=== PATIENT | female | born 1960 | race Caucasian/White ===

== ENCOUNTER → 2016-11-01 | Outpatient (CLI) | payer OTHER | END | disposition home or self-care (01) | LOC: PETCFH 08:13 | PROVIDERS: ATTEND Obstetrics & Gynecology Maternal & Fetal Medicine | DX: M43.07 Spondylolysis, lumbosacral region (principal); M13.89 Other specified arthritis, multiple sites; M89.9 Disorder of bone, unspecified | CPT/HCPCS: 78306; A9503 ==

== ENCOUNTER → 2016-11-06 | Outpatient (CLI) | payer OTHER | END | disposition home or self-care (01) | LOC: PETCFH 07:37 | PROVIDERS: ATTEND Obstetrics & Gynecology Maternal & Fetal Medicine | DX: M89.9 Disorder of bone, unspecified (principal); I77.810 Thoracic aortic ectasia; J84.10 Pulmonary fibrosis, unspecified | CPT/HCPCS: 78815; A9552 ==

== ENCOUNTER → 2017-05-29 | Outpatient (CLI) | payer OTHER | END | disposition home or self-care (01) | LOC: CFH 09:05 → EDSTATUS 09:30 | PROVIDERS: ATTEND Orthopaedic Surgery | DX: M43.17 Spondylolisthesis, lumbosacral region (principal); G89.29 Other chronic pain | CPT/HCPCS: 72131 ==

== ENCOUNTER → 2017-11-14 | Outpatient (CLI) | payer OTHER ==
[~2017-11-14] MED LIST: GADOBUTROL 10 MMOL/10 ML VIAL ONE
== END | disposition home or self-care (01) ==
LOC: CFH 14:53
PROVIDERS: ATTEND Obstetrics & Gynecology Maternal & Fetal Medicine
DX: M89.9 Disorder of bone, unspecified (principal); Z85.3 Personal history of malignant neoplasm of breast
CPT/HCPCS: A9585; C8908

== ENCOUNTER → 2018-06-03 | Outpatient (CLI) | payer OTHER | END | disposition home or self-care (01) | LOC: CARD 10:51 | PROVIDERS: ATTEND Family Medicine | DX: R00.2 Palpitations (principal) | CPT/HCPCS: 93017; 93350 ==

== ENCOUNTER 2019-12-29 12:32 | Outpatient (CLI) | payer OTHER ==
[2019-12-29] MEDS ORDERED: GADOTERATE 7.5 MMOL/15 ML VIAL ONE (13:25)
== END 2019-12-29 23:59 | disposition home or self-care (01) ==
LOC: CFH 12:32
PROVIDERS: ATTEND Obstetrics & Gynecology Maternal & Fetal Medicine
DX: Z03.89 Encounter for observation for other suspected diseases and conditions ruled out (principal); Z80.3 Family history of malignant neoplasm of breast
CPT/HCPCS: 77049; A9575; C8908